=== PATIENT | male | born 1970 | race Caucasian/White ===

== ENCOUNTER 2022-04-07 04:09 | Inpatient (IN) | payer MEDICAID ==
[~2022-04-07] VITALS: Ht 182.9 cm; Wt 187.0 kg
[~2022-04-07 04:09] MED LIST: AMLO-489 PO; ATEN50TA PO; DIA5T PO; GABA-339 PO; GEMF-19 PO; GLYB5TAB8 PO; METF-371 PO; QUET100T38 PO; TRIA50TA2 PO
[2022-04-07 06:31] LABS: Basophils # (auto) 0 10 ^3/uL (0-0.2); Basophils % (auto) 0.3 % (0.0-2.0); Eosinophils # (auto) 0 10 ^3/uL (0-0.8); Eosinophils % (auto) 0.1 % (0.0-7.0); Hematocrit 36.3 % (41.0-53.0); Hemoglobin 12.2 g/dL (13.5-17.5); Lymphocytes # (auto) 0.7 10 ^3/uL (0.4-5.4); Lymphocytes % (auto) 5.1 % (10.0-50.0); Mean Corpuscular Hemoglobin 29.7 pg (28.0-32.0); Mean Corpuscular Hgb Conc. 33.5 g/dL (32.0-36.0); Mean Corpuscular Volume 88.7 fL (80.0-100.0); Monocytes # (auto) 0.9 10 ^3/uL (0-1.3); Monocytes % (auto) 6.6 % (0.0-12.0); Neutrophils # (auto) 12.4 10 ^3/uL (1.6-8.6); Neutrophils % (auto) 87.9 % (37.0-80.0); Red Blood Cells 4.09 10^6/uL (4.5-5.90); Red Cell Distribution Width 15.2 % (11.8-14.3); White Blood Cell 14.1 10^3/uL (4.4-10.8)
[2022-04-07 06:40] LABS: Albumin 3.6 g/dL (3.4-5.0); Calcium 8.4 mg/dL (8.5-10.1); Potassium 5.5 mmol/L (3.5-5.1)
[2022-04-07 06:52] LABS: BUN/Creatinine Ratio 15.5; Bilirubin, Total 0.6 mg/dL (0.2-1.0); Total Protein 7.6 g/dL (6.4-8.2)
[2022-04-07] MEDS ORDERED: FUROSEMIDE 20 MG/2 ML VIAL IV ONE (10:45)
[2022-04-07] MEDS ORDERED: SODIUM ZIRCONIUM CYCL 10 GM PAK PO ONE (10:45)
[2022-04-07] MEDS ORDERED: CALCIUM GLUC 1,000mg/50ml-NS 50 ML IV ONE (10:45)
[2022-04-07] MEDS ORDERED: ALBUTEROL SULF 2.5 MG/0.5ML(0.5%) NEB SOLN NEB ONE (10:45)
[2022-04-07] MEDS ORDERED: SODIUM BICARBONATE 8.4% INJ 50ML SYRINGE IV ONE (10:45)
[2022-04-07] MEDS ORDERED: InsuLIN REG 1unit/0.01ml Soln (100units/ml) IV ONE (10:45)
[2022-04-07] MEDS ORDERED: DEXTROSE (50%) 50ML SYRG IV ONE (10:45)
[2022-04-07] MEDS ORDERED: SODIUM CHLORIDE 0.9% 1,000 ML IV ONE (14:00)
[2022-04-07] MEDS ORDERED: MORPHINE SULFATE INJECTION 2 MG/ML SYRG IV PRN (14:00)
[2022-04-07] MEDS ORDERED: FUROSEMIDE 40 MG/4 ML VIAL IV ONE (14:15)
[2022-04-07] MEDS ORDERED: ALBUTEROL SULF 2.5 MG/0.5ML(0.5%) NEB SOLN NEB PRN (14:15)
[2022-04-07] MEDS ORDERED: methylPREDNISolone SOD SUCC 125 MG/2 ML VL IM ONE (14:15)
[2022-04-07] MEDS ORDERED: DEXTROSE (50%) 50ML SYRG IV PRN (14:15)
[2022-04-07 14:52] LABS: Cholesterol 129 mg/dL (< 200); HDL Cholesterol 57 mg/dL (40-59); LDL Cholesterol 55 mg/dL (< 100); Triglycerides 155 mg/dL (< 150)
[2022-04-07] MEDS: CLINDAMYCIN 300MG IV 50 ML IV SCH ×2 (14:53→21:32)
[2022-04-07] MEDS: InsuLIN REG 1unit/0.01ml Soln (100units/ml) SC SCH ×2 (17:00→22:07)
[2022-04-07 17:10] VITALS: BP 148/68
[2022-04-07] MEDS ORDERED: HEPARIN SODIUM (PORCINE) 5000 UNITS/ML 1ML VIAL ONE (17:25)
[2022-04-07] MEDS: ACCU-CHEK COMFORT CURVE STRIP VI SCH ×2 (17:36→21:32)
[2022-04-07 19:11] VITALS: BP 148/68
[2022-04-07 19:40] VITALS: BP 148/68
[2022-04-07] MEDS: HEPARIN SODIUM (PORCINE) 5000 UNITS/ML 1ML VIAL SC SCH (21:32)
[2022-04-07 22:00] VITALS: BP 154/76
[2022-04-08] LABS: Alcohol, Urine < 3.0 mg/dL (0-10); Amphetamine Screen, Urine NEGATIVE (NEGATIVE); Barbiturate Scree,Urine NEGATIVE (NEGATIVE); Benzodiazephine Screen, Urine NEGATIVE (NEGATIVE); Cannabinoid Screen, Urine NEGATIVE (NEGATIVE); Cocaine Screen, Urine NEGATIVE (NEGATIVE); Opiate Scree,Urine POSITIVE (NEGATIVE); Phencyclidine Screen, Urine NEGATIVE (NEGATIVE)
[2022-04-08 00:07] LABS: Urine Blood Normal /uL (Negative); Urine Specific Gravity 1.008 (1.001-1.035)
[2022-04-08 00:14] LABS: Urine WBC 1 /hpf (0 - 3)
[2022-04-08 00:15] LABS: Urine Bacteria NONE SEEN /hpf (None Seen)
[2022-04-08 05:00] VITALS: BP 143/73
[2022-04-08 06:13] LABS: Basophils # (auto) 0 10 ^3/uL (0-0.2); Eosinophils # (auto) 0 10 ^3/uL (0-0.8); Hemoglobin 12.2 g/dL (13.5-17.5); Lymphocytes # (auto) 0.3 10 ^3/uL (0.4-5.4); Lymphocytes % (auto) 3.4 % (10.0-50.0); Mean Corpuscular Hemoglobin 30.9 pg (28.0-32.0); Mean Corpuscular Hgb Conc. 34.9 g/dL (32.0-36.0); Mean Corpuscular Volume 88.6 fL (80.0-100.0); Monocytes # (auto) 0.2 10 ^3/uL (0-1.3); Monocytes % (auto) 2.9 % (0.0-12.0); Neutrophils # (auto) 7.7 10 ^3/uL (1.6-8.6); Neutrophils % (auto) 93.7 % (37.0-80.0); Red Blood Cells 3.96 10^6/uL (4.5-5.90); Red Cell Distribution Width 14.7 % (11.8-14.3); White Blood Cell 8.2 10^3/uL (4.4-10.8)
[2022-04-08 06:24] LABS: Albumin 3.2 g/dL (3.4-5.0); Calcium 8.5 mg/dL (8.5-10.1); Potassium 4.6 mmol/L (3.5-5.1)
[2022-04-08 06:28] LABS: BUN/Creatinine Ratio 23.8; Bilirubin, Total 0.5 mg/dL (0.2-1.0); Total Protein 7.4 g/dL (6.4-8.2)
[2022-04-08] MEDS: ACCU-CHEK COMFORT CURVE STRIP VI SCH ×4 (06:29→23:48)
[2022-04-08] MEDS: CLINDAMYCIN 300MG IV 50 ML IV SCH ×3 (06:30→23:44)
[2022-04-08] MEDS: InsuLIN REG 1unit/0.01ml Soln (100units/ml) SC SCH ×3 (06:41→18:35)
[2022-04-08 08:00] VITALS: BP 140/82
[2022-04-08] MEDS ORDERED: TRIAMTERENE/HCTZ 75/50MG TABLET PO SCH (10:00)
[2022-04-08] MEDS ORDERED: OPTISON 3ml Vial for INJ IV ONE (10:20)
[2022-04-08] MEDS: amLODIPine BESYLATE 5 MG TAB PO SCH (10:51)
[2022-04-08] MEDS: ATENOLOL 50 MG TAB PO SCH (10:51)
[2022-04-08] MEDS: HEPARIN SODIUM (PORCINE) 5000 UNITS/ML 1ML VIAL SC SCH (10:57)
[2022-04-08] MEDS: HYDROcodone-ACET 10/325MG TAB PO PRN ×2 (12:28→23:55)
[2022-04-08] MEDS: FUROSEMIDE 20 MG/2 ML VIAL IV SCH (12:29)
[2022-04-08 12:49] VITALS: BP 148/76
[2022-04-08] MEDS ORDERED: GABAPENTIN 400 MG CAP PO SCH (14:00)
[2022-04-08] MEDS: metFORMIN HYDROCHLORIDE 850 MG TAB PO SCH ×2 (15:31→23:46)
[2022-04-08 16:00] VITALS: BP 106/73
[2022-04-08] MEDS ORDERED: TRIAMTERENE/HCTZ 37.5/25 MG CAP/TAB PO ONE (16:30)
[2022-04-08] MEDS: GABAPENTIN 400 MG CAP PO SCH ×2 (18:32→23:45)
[2022-04-08 22:00] VITALS: BP 132/67
[2022-04-08] MEDS ORDERED: QUEtiapine FUMARATE 100 MG TAB PO SCH (22:00)
[2022-04-08] MEDS: methylPREDNISolone SOD SUCC 40 MG/ML VL IV SCH (23:45)
[2022-04-09] MEDS: HEPARIN SODIUM (PORCINE) 5000 UNITS/ML 1ML VIAL SC SCH ×2 (00:08→10:52)
[2022-04-09] MEDS: InsuLIN REG 1unit/0.01ml Soln (100units/ml) SC SCH ×4 (00:10→17:35)
[2022-04-09 05:00] VITALS: BP 141/74
[2022-04-09] MEDS: GABAPENTIN 400 MG CAP PO SCH ×2 (05:20→14:23)
[2022-04-09] MEDS: metFORMIN HYDROCHLORIDE 850 MG TAB PO SCH ×2 (05:20→14:23)
[2022-04-09] MEDS: CLINDAMYCIN 300MG IV 50 ML IV SCH ×3 (05:21→14:23)
[2022-04-09 06:43] LABS: Basophils # (auto) 0 10 ^3/uL (0-0.2); Basophils % (auto) 0.1 % (0.0-2.0); Eosinophils # (auto) 0 10 ^3/uL (0-0.8); Hematocrit 34.5 % (41.0-53.0); Hemoglobin 11.4 g/dL (13.5-17.5); Lymphocytes # (auto) 0.5 10 ^3/uL (0.4-5.4); Lymphocytes % (auto) 6.1 % (10.0-50.0); Mean Corpuscular Hemoglobin 29.7 pg (28.0-32.0); Mean Corpuscular Hgb Conc. 33.1 g/dL (32.0-36.0); Mean Corpuscular Volume 89.7 fL (80.0-100.0); Monocytes # (auto) 0.2 10 ^3/uL (0-1.3); Monocytes % (auto) 3.1 % (0.0-12.0); Neutrophils # (auto) 6.8 10 ^3/uL (1.6-8.6); Neutrophils % (auto) 90.7 % (37.0-80.0); Nucleated Red Blood Cells % 0.1 %; Red Blood Cells 3.84 10^6/uL (4.5-5.90); Red Cell Distribution Width 14.8 % (11.8-14.3); White Blood Cell 7.5 10^3/uL (4.4-10.8)
[2022-04-09] MEDS: ACCU-CHEK COMFORT CURVE STRIP VI SCH ×3 (06:43→17:33)
[2022-04-09 07:00] LABS: BUN/Creatinine Ratio 21.6; Calcium 8.1 mg/dL (8.5-10.1); Potassium 5.5 mmol/L (3.5-5.1)
[2022-04-09 08:32] VITALS: BP 146/89
[2022-04-09] MEDS ORDERED: TRIAMTERENE/HCTZ 37.5/25 MG CAP/TAB PO SCH (10:00)
[2022-04-09] MEDS ORDERED: FURO1TAB33 PO (10:32)
[2022-04-09] MEDS ORDERED: PRED20TA2 PO (10:32)
[2022-04-09] MEDS ORDERED: CLIN300C8 PO (10:33)
[2022-04-09] MEDS: ATENOLOL 50 MG TAB PO SCH (10:49)
[2022-04-09] MEDS: amLODIPine BESYLATE 5 MG TAB PO SCH (10:50)
[2022-04-09] MEDS: HYDROcodone-ACET 10/325MG TAB PO PRN ×2 (10:51→17:33)
[2022-04-09] MEDS: FUROSEMIDE 20 MG/2 ML VIAL IV SCH (10:51)
[2022-04-09] MEDS: methylPREDNISolone SOD SUCC 40 MG/ML VL IV SCH (10:52)
[2022-04-09 13:14] VITALS: BP 111/78
[2022-04-09 16:54] VITALS: BP 146/89
== END 2022-04-09 18:58 | disposition home or self-care (01) | DRG 140 ==
LOC: EDBD 04:09 → EDUNIT# 04:09 → ER 04:15 → TELE 14:06 → TELE-WESTW 15:21
PROVIDERS: ADMIT Registered Nurse; ATTEND Internal Medicine Pulmonary Disease
DX: J44.1 Chronic obstructive pulmonary disease with (acute) exacerbation (principal); J96.21 Acute and chronic respiratory failure with hypoxia; I50.33 Acute on chronic diastolic (congestive) heart failure; N17.9 Acute kidney failure, unspecified; L03.116 Cellulitis of left lower limb; Z68.43 Body mass index [BMI] 50.0-59.9, adult; I13.0 Hypertensive heart and chronic kidney disease with heart failure and stage 1 through stage 4 chronic kidney disease, or unspecified chronic kidney disease; D64.9 Anemia, unspecified; E11.22 Type 2 diabetes mellitus with diabetic chronic kidney disease; E87.5 Hyperkalemia; E66.01 Morbid (severe) obesity due to excess calories; F10.10 Alcohol abuse, uncomplicated; F32.A Depression, unspecified; G47.30 Sleep apnea, unspecified; N18.30 Chronic kidney disease, stage 3 unspecified; Z99.81 Dependence on supplemental oxygen; R79.89 Other specified abnormal findings of blood chemistry; Z20.822 Contact with and (suspected) exposure to COVID-19
CPT/HCPCS: 36415; 71045; 80048; 80053; 80061; 80307; 80320; 81001; 82962; 83036; 83735; 83880; 84132; 84484; 85025; 87040; 93005; 93306; 93970; 94640; 94644; 96365; 96372; 96375; 99291; G0378; J1815; J3490; Q9956

== ENCOUNTER 2022-04-25 08:25 | Emergency (ER) | payer MEDICAID ==
[~2022-04-25] VITALS: Ht 182.9 cm; Wt 46.7 kg
[2022-04-25 08:25] VITALS: BP 144/72
[~2022-04-25 08:25] MED LIST changes: +CLIN300C8 PO; -DIA5T PO; +FURO1TAB33 PO; -GEMF-19 PO; +PRED20TA2 PO; -TRIA50TA2 PO
[2022-04-25 10:50] LABS: Basophils # (auto) 0.1 10 ^3/uL (0-0.2); Basophils % (auto) 1.6 % (0.0-2.0); Eosinophils # (auto) 0.2 10 ^3/uL (0-0.8); Eosinophils % (auto) 4.2 % (0.0-7.0); Hematocrit 38.1 % (41.0-53.0); Hemoglobin 12.6 g/dL (13.5-17.5); Lymphocytes # (auto) 0.9 10 ^3/uL (0.4-5.4); Lymphocytes % (auto) 14.8 % (10.0-50.0); Mean Corpuscular Hemoglobin 29.7 pg (28.0-32.0); Mean Corpuscular Hgb Conc. 33.1 g/dL (32.0-36.0); Mean Corpuscular Volume 89.5 fL (80.0-100.0); Monocytes # (auto) 0.6 10 ^3/uL (0-1.3); Monocytes % (auto) 9.5 % (0.0-12.0); Neutrophils # (auto) 4.1 10 ^3/uL (1.6-8.6); Neutrophils % (auto) 69.9 % (37.0-80.0); Nucleated Red Blood Cells % 0.1 %; Red Blood Cells 4.25 10^6/uL (4.5-5.90); White Blood Cell 5.9 10^3/uL (4.4-10.8)
[2022-04-25 11:18] LABS: Albumin 3.2 g/dL (3.4-5.0); Calcium 8.3 mg/dL (8.5-10.1); Magnesium 2.2 mg/dL (1.6-2.6); Potassium 4.2 mmol/L (3.5-5.1)
[2022-04-25 11:22] LABS: BUN/Creatinine Ratio 16.8; Bilirubin, Total 0.7 mg/dL (0.2-1.0); Total Protein 7.3 g/dL (6.4-8.2)
[2022-04-25] MEDS ORDERED: VANCOMYCIN 1GM/250ML 250 ML IV ONE (15:45)
== END 2022-04-25 21:34 | disposition left against medical advice (07) ==
LOC: ER 08:25
DX: L03.116 Cellulitis of left lower limb (principal); I10 Essential (primary) hypertension; E11.9 Type 2 diabetes mellitus without complications; J44.9 Chronic obstructive pulmonary disease, unspecified; R06.02 Shortness of breath; Z88.1 Allergy status to other antibiotic agents
CPT/HCPCS: 36415; 71045; 80053; 83735; 83880; 84484; 85025; 93005

== ENCOUNTER 2022-10-23 20:57 | Inpatient (IN) | payer MEDICAID ==
[~2022-10-23] VITALS: Ht 182.9 cm; Wt 175.5 kg
[2022-10-23] MEDS ORDERED: FUROSEMIDE 100 MG/10ML VIAL IV ONE (21:15)
[2022-10-23] MEDS ORDERED: methylPREDNISolone SOD SUCC 125 MG/2 ML VL IV ONE (21:15)
[2022-10-23 22:24] LABS: Basophils # (auto) 0 10 ^3/uL (0-0.2); Basophils % (auto) 0.4 % (0.0-2.0); Eosinophils # (auto) 0.2 10 ^3/uL (0-0.8); Eosinophils % (auto) 2.9 % (0.0-7.0); Hematocrit 34.6 % (41.0-53.0); Hemoglobin 11.1 g/dL (13.5-17.5); Lymphocytes # (auto) 0.5 10 ^3/uL (0.4-5.4); Lymphocytes % (auto) 8.7 % (10.0-50.0); Mean Corpuscular Hemoglobin 29.3 pg (28.0-32.0); Mean Corpuscular Hgb Conc. 32.2 g/dL (32.0-36.0); Monocytes # (auto) 0.6 10 ^3/uL (0-1.3); Monocytes % (auto) 9.6 % (0.0-12.0); Neutrophils # (auto) 4.6 10 ^3/uL (1.6-8.6); Neutrophils % (auto) 78.4 % (37.0-80.0); Nucleated Red Blood Cells % 0.3 %; White Blood Cell 5.9 10^3/uL (4.4-10.8)
[2022-10-23 22:33] LABS: Albumin 3.3 g/dL (3.4-5.0); BUN/Creatinine Ratio 11.2; Calcium 7.9 mg/dL (8.5-10.1); Potassium 4.2 mmol/L (3.5-5.1)
[2022-10-23 22:37] LABS: Bilirubin, Total 0.6 mg/dL (0.2-1.0); Total Protein 6.4 g/dL (6.4-8.2)
[2022-10-23 22:40] LABS: INR 0.94 (0.9-1.15); Partial Thromboplastin Time 28.1 sec (24.6-33.4)
[2022-10-24 00:27] LABS: Urine Bacteria FEW /hpf (None Seen); Urine Blood Negative /uL (Negative); Urine Specific Gravity 1.004 (1.001-1.035); Urine WBC <1 /hpf (0 - 3)
[2022-10-24] MEDS ORDERED: levoFLOXacin 500MG 100 ML IV ONE (01:00)
[2022-10-24] MEDS ORDERED: DEXTROSE (50%) 50ML SYRG IV PRN (02:45)
[2022-10-24] MEDS ORDERED: ONDANSETRON HCL 4 MG/2 ML VIAL IV PRN (02:45)
[2022-10-24] MEDS: FUROSEMIDE 40 MG TAB PO SCH ×2 (06:58→17:16)
[2022-10-24] MEDS: ACCU-CHEK COMFORT CURVE STRIP VI SCH ×4 (06:59→23:51)
[2022-10-24] MEDS: InsuLIN REG 1unit/0.01ml Soln (100units/ml) SC SCH ×3 (06:59→17:26)
[2022-10-24] MEDS: ACETAMINOPHEN 325 MG TAB PO PRN ×2 (07:51→19:48)
[2022-10-24] MEDS: ENOXAPARIN SOD 40 MG/0.4 ML SYRINGE SC SCH (09:58)
[2022-10-24] MEDS: PANTOPRAZOLE 40 MG TAB PO SCH (09:58)
[2022-10-24] MEDS: ATENOLOL 50 MG TAB PO SCH (09:59)
[2022-10-24] MEDS: LOSARTAN POTASSIUM 50 MG TAB PO SCH (09:59)
[2022-10-24] MEDS ORDERED: methylPREDNISolone SOD SUCC 125 MG/2 ML VL IV ONE (10:00)
[2022-10-24] MEDS ORDERED: amLODIPine BESYLATE 5 MG TAB PO ONE (12:45)
[2022-10-24 13:45] VITALS: BP 161/80
[2022-10-24] MEDS: ALBUTEROL SULF 2.5 MG/0.5ML(0.5%) NEB SOLN NEB SCH ×2 (13:47→18:31)
[2022-10-24] MEDS: HYDROcodone-ACET 10/325MG TAB PO PRN (14:22)
[2022-10-24] MEDS: methylPREDNISolone SOD SUCC 125 MG/2 ML VL IV SCH ×2 (16:23→21:44)
[2022-10-24] MEDS ORDERED: ATOR40TA52 PO (16:26)
[2022-10-24] MEDS ORDERED: BECL80AE11 INH (16:26)
[2022-10-24] MEDS ORDERED: LOSA-69 PO (16:26)
[2022-10-24] MEDS ORDERED: INSU1INJ19 SC (16:26)
[2022-10-24] MEDS: hydrALAZINE HCL 20 MG/ML VL IV PRN (18:15)
[2022-10-24] MEDS: cefTRIAXone 1GM/50ML D5W 50 ML IV SCH (20:49)
[2022-10-24] MEDS: AZITHROMYCIN 500MG/ 250ML 250 ML IV SCH (21:45)
[2022-10-24] MEDS: ATORVASTATIN 20 MG TAB PO SCH (21:45)
[2022-10-24 22:00] VITALS: BP 125/86
[2022-10-25] MEDS: TEMAZEPAM 15 MG CAP PO PRN ×2 (00:01→21:36)
[2022-10-25] MEDS: methylPREDNISolone SOD SUCC 125 MG/2 ML VL IV SCH ×4 (03:52→21:35)
[2022-10-25 05:00] VITALS: BP 178/93
[2022-10-25] MEDS: ACCU-CHEK COMFORT CURVE STRIP VI SCH ×4 (05:36→23:48)
[2022-10-25] MEDS: FUROSEMIDE 40 MG TAB PO SCH ×2 (05:36→17:16)
[2022-10-25 05:42] LABS: Basophils # (auto) 0 10 ^3/uL (0-0.2); Basophils % (auto) 0.1 % (0.0-2.0); Eosinophils # (auto) 0 10 ^3/uL (0-0.8); Hematocrit 36.8 % (41.0-53.0); Hemoglobin 11.8 g/dL (13.5-17.5); Lymphocytes # (auto) 0.4 10 ^3/uL (0.4-5.4); Lymphocytes % (auto) 5.9 % (10.0-50.0); Mean Corpuscular Hemoglobin 29.3 pg (28.0-32.0); Mean Corpuscular Hgb Conc. 32.2 g/dL (32.0-36.0); Mean Corpuscular Volume 91.1 fL (80.0-100.0); Monocytes # (auto) 0.5 10 ^3/uL (0-1.3); Monocytes % (auto) 8.1 % (0.0-12.0); Neutrophils # (auto) 5.2 10 ^3/uL (1.6-8.6); Neutrophils % (auto) 85.9 % (37.0-80.0); Red Blood Cells 4.04 10^6/uL (4.5-5.90); Red Cell Distribution Width 14.6 % (11.8-14.3); White Blood Cell 6.1 10^3/uL (4.4-10.8)
[2022-10-25] MEDS: InsuLIN REG 1unit/0.01ml Soln (100units/ml) SC SCH ×5 (05:51→23:49)
[2022-10-25 06:06] LABS: Albumin 3.2 g/dL (3.4-5.0); Potassium 4.2 mmol/L (3.5-5.1)
[2022-10-25] MEDS: ALBUTEROL SULF 2.5 MG/0.5ML(0.5%) NEB SOLN NEB SCH ×3 (06:06→18:55)
[2022-10-25 06:11] LABS: Bilirubin, Total 0.4 mg/dL (0.2-1.0); Total Protein 6.5 g/dL (6.4-8.2)
[2022-10-25 06:20] LABS: BUN/Creatinine Ratio 23.6
[2022-10-25 09:09] VITALS: BP 164/92
[2022-10-25] MEDS: LOSARTAN POTASSIUM 50 MG TAB PO SCH (09:40)
[2022-10-25] MEDS: PANTOPRAZOLE 40 MG TAB PO SCH (09:40)
[2022-10-25] MEDS: ATENOLOL 50 MG TAB PO SCH (09:40)
[2022-10-25] MEDS: amLODIPine BESYLATE 5 MG TAB PO SCH (09:40)
[2022-10-25] MEDS: ENOXAPARIN SOD 40 MG/0.4 ML SYRINGE SC SCH (09:41)
[2022-10-25] MEDS: HYDROcodone-ACET 10/325MG TAB PO PRN ×2 (12:40→20:09)
[2022-10-25 13:00] VITALS: BP 138/90
[2022-10-25 17:18] VITALS: BP 137/89
[2022-10-25] MEDS: cefTRIAXone 1GM/50ML D5W 50 ML IV SCH (20:59)
[2022-10-25] MEDS: AZITHROMYCIN 500MG/ 250ML 250 ML IV SCH (21:35)
[2022-10-25] MEDS: ATORVASTATIN 20 MG TAB PO SCH (21:36)
[2022-10-25 22:00] VITALS: BP 146/80
[2022-10-26] MEDS: ALBUTEROL SULF 2.5 MG/0.5ML(0.5%) NEB SOLN NEB PRN ×2 (02:09→16:30)
[2022-10-26] MEDS: methylPREDNISolone SOD SUCC 125 MG/2 ML VL IV SCH ×4 (03:54→21:27)
[2022-10-26 05:00] VITALS: BP 163/91
[2022-10-26 05:30] LABS: Basophils # (auto) 0 10 ^3/uL (0-0.2); Eosinophils # (auto) 0 10 ^3/uL (0-0.8); Hematocrit 37.8 % (41.0-53.0); Hemoglobin 12.2 g/dL (13.5-17.5); Lymphocytes # (auto) 0.4 10 ^3/uL (0.4-5.4); Lymphocytes % (auto) 5.8 % (10.0-50.0); Mean Corpuscular Hgb Conc. 32.4 g/dL (32.0-36.0); Mean Corpuscular Volume 89.7 fL (80.0-100.0); Monocytes # (auto) 0.4 10 ^3/uL (0-1.3); Neutrophils # (auto) 6.6 10 ^3/uL (1.6-8.6); Neutrophils % (auto) 88.2 % (37.0-80.0); Nucleated Red Blood Cells % 0.1 %; Red Blood Cells 4.22 10^6/uL (4.5-5.90); Red Cell Distribution Width 14.9 % (11.8-14.3); White Blood Cell 7.5 10^3/uL (4.4-10.8)
[2022-10-26] MEDS: FUROSEMIDE 40 MG TAB PO SCH ×2 (05:51→18:12)
[2022-10-26] MEDS: ACCU-CHEK COMFORT CURVE STRIP VI SCH ×4 (05:51→21:29)
[2022-10-26 05:55] LABS: Albumin 3.2 g/dL (3.4-5.0); BUN/Creatinine Ratio 27.7; Bilirubin, Total 0.5 mg/dL (0.2-1.0); Total Protein 6.7 g/dL (6.4-8.2)
[2022-10-26] MEDS: InsuLIN REG 1unit/0.01ml Soln (100units/ml) SC SCH ×4 (06:02→22:59)
[2022-10-26] MEDS: ALBUTEROL SULF 2.5 MG/0.5ML(0.5%) NEB SOLN NEB SCH ×4 (06:27→22:50)
[2022-10-26 09:00] VITALS: BP_SYST 147; BP_SYST 148; BP_DIAS 65; BP_DIAS 76
[2022-10-26] MEDS: PANTOPRAZOLE 40 MG TAB PO SCH (09:32)
[2022-10-26] MEDS: ENOXAPARIN SOD 40 MG/0.4 ML SYRINGE SC SCH (09:32)
[2022-10-26] MEDS: LOSARTAN POTASSIUM 50 MG TAB PO SCH (09:34)
[2022-10-26] MEDS: amLODIPine BESYLATE 5 MG TAB PO SCH (09:35)
[2022-10-26] MEDS: HYDROcodone-ACET 10/325MG TAB PO PRN (09:36)
[2022-10-26] MEDS: ATENOLOL 50 MG TAB PO SCH (09:36)
[2022-10-26 13:00] VITALS: BP 162/96
[2022-10-26 17:27] VITALS: BP 165/94
[2022-10-26 20:00] VITALS: BP 165/94
[2022-10-26 21:21] VITALS: BP 155/86
[2022-10-26] MEDS: cefTRIAXone 1GM/50ML D5W 50 ML IV SCH (21:27)
[2022-10-26] MEDS: AZITHROMYCIN 500MG/ 250ML 250 ML IV SCH (21:28)
[2022-10-26] MEDS: ATORVASTATIN 20 MG TAB PO SCH (21:29)
[2022-10-27] MEDS: ALBUTEROL SULF 2.5 MG/0.5ML(0.5%) NEB SOLN NEB SCH ×6 (02:27→22:04)
[2022-10-27 05:00] VITALS: BP 168/85
[2022-10-27 06:06] LABS: Basophils # (auto) 0 10 ^3/uL (0-0.2); Basophils % (auto) 0.1 % (0.0-2.0); Eosinophils # (auto) 0 10 ^3/uL (0-0.8); Hematocrit 39.6 % (41.0-53.0); Hemoglobin 12.8 g/dL (13.5-17.5); Lymphocytes # (auto) 0.6 10 ^3/uL (0.4-5.4); Lymphocytes % (auto) 7.3 % (10.0-50.0); Mean Corpuscular Hgb Conc. 32.4 g/dL (32.0-36.0); Mean Corpuscular Volume 89.5 fL (80.0-100.0); Monocytes # (auto) 0.8 10 ^3/uL (0-1.3); Monocytes % (auto) 9.2 % (0.0-12.0); Neutrophils # (auto) 6.8 10 ^3/uL (1.6-8.6); Neutrophils % (auto) 83.4 % (37.0-80.0); Nucleated Red Blood Cells % 0.1 %; Red Blood Cells 4.42 10^6/uL (4.5-5.90); Red Cell Distribution Width 14.3 % (11.8-14.3); White Blood Cell 8.2 10^3/uL (4.4-10.8)
[2022-10-27 06:17] LABS: Albumin 3.4 g/dL (3.4-5.0); Calcium 8.2 mg/dL (8.5-10.1); Potassium 4.1 mmol/L (3.5-5.1)
[2022-10-27] MEDS: methylPREDNISolone SOD SUCC 125 MG/2 ML VL IV SCH ×4 (06:18→21:31)
[2022-10-27 06:19] LABS: BUN/Creatinine Ratio 23.9
[2022-10-27] MEDS: InsuLIN REG 1unit/0.01ml Soln (100units/ml) SC SCH ×4 (06:20→23:32)
[2022-10-27] MEDS: FUROSEMIDE 40 MG TAB PO SCH ×2 (06:20→18:18)
[2022-10-27] MEDS: ACCU-CHEK COMFORT CURVE STRIP VI SCH ×3 (06:20→18:18)
[2022-10-27 06:21] LABS: Bilirubin, Total 0.5 mg/dL (0.2-1.0); Total Protein 6.6 g/dL (6.4-8.2)
[2022-10-27 08:00] VITALS: BP 168/92
[2022-10-27 09:00] VITALS: BP 168/92
[2022-10-27] MEDS: amLODIPine BESYLATE 5 MG TAB PO SCH (09:03)
[2022-10-27] MEDS: PANTOPRAZOLE 40 MG TAB PO SCH (09:03)
[2022-10-27] MEDS: ATENOLOL 50 MG TAB PO SCH (09:03)
[2022-10-27] MEDS: ENOXAPARIN SOD 40 MG/0.4 ML SYRINGE SC SCH (09:04)
[2022-10-27] MEDS: LOSARTAN POTASSIUM 50 MG TAB PO SCH (09:04)
[2022-10-27] MEDS: HYDROcodone-ACET 10/325MG TAB PO PRN ×2 (09:05→15:20)
[2022-10-27 13:00] VITALS: BP 169/74
[2022-10-27] MEDS: PIPERACILLIN-TAZOB 3.375GM 100 ML IV SCH ×2 (13:01→19:45)
[2022-10-27] MEDS ORDERED: ALBUTEROL SULF 2.5 MG/0.5ML(0.5%) NEB SOLN ONE (15:30)
[2022-10-27 17:00] VITALS: BP 162/87
[2022-10-27] MEDS ORDERED: LOSARTAN POTASSIUM 50 MG TAB PO ONE (19:00)
[2022-10-27] MEDS: TEMAZEPAM 15 MG CAP PO PRN (21:31)
[2022-10-27] MEDS: AZITHROMYCIN 500MG/ 250ML 250 ML IV SCH (21:31)
[2022-10-27] MEDS: ATORVASTATIN 20 MG TAB PO SCH (21:31)
[2022-10-27 22:00] VITALS: BP 163/99
[2022-10-28] MEDS: ACCU-CHEK COMFORT CURVE STRIP VI SCH ×5 (00:20→23:52)
[2022-10-28] MEDS: PIPERACILLIN-TAZOB 3.375GM 100 ML IV SCH ×5 (00:24→23:59)
[2022-10-28 03:25] VITALS: BP 163/99
[2022-10-28] MEDS: methylPREDNISolone SOD SUCC 125 MG/2 ML VL IV SCH ×4 (04:35→21:58)
[2022-10-28 05:00] VITALS: BP 160/100
[2022-10-28] MEDS: ALBUTEROL SULF 2.5 MG/0.5ML(0.5%) NEB SOLN NEB SCH ×5 (06:02→22:49)
[2022-10-28 06:04] LABS: Hematocrit 39.2 % (41.0-53.0); Mean Corpuscular Hgb Conc. 33.3 g/dL (32.0-36.0); Red Blood Cells 4.35 10^6/uL (4.5-5.90); Red Cell Distribution Width 14.1 % (11.8-14.3); White Blood Cell 6.7 10^3/uL (4.4-10.8)
[2022-10-28 06:08] LABS: Basophils % (manual) 0 (0.0-2.0); Blast Cells 0; Eosinophils % (manual) 0 (0-7); Promyelocytes % 0
[2022-10-28] MEDS: FUROSEMIDE 40 MG TAB PO SCH ×2 (06:15→18:49)
[2022-10-28] MEDS: InsuLIN REG 1unit/0.01ml Soln (100units/ml) SC SCH ×3 (06:20→18:49)
[2022-10-28 08:15] VITALS: BP 173/88
[2022-10-28] MEDS: LOSARTAN POTASSIUM 50 MG TAB PO SCH (09:25)
[2022-10-28] MEDS: HYDROcodone-ACET 10/325MG TAB PO PRN ×2 (09:25→21:58)
[2022-10-28] MEDS: amLODIPine BESYLATE 5 MG TAB PO SCH (09:25)
[2022-10-28] MEDS: ATENOLOL 50 MG TAB PO SCH (09:26)
[2022-10-28] MEDS: PANTOPRAZOLE 40 MG TAB PO SCH (09:26)
[2022-10-28] MEDS: ENOXAPARIN SOD 40 MG/0.4 ML SYRINGE SC SCH (09:26)
[2022-10-28 09:34] LABS: Chloride 98 mmol/L (98-107); Sodium 139 mmol/L (136-145)
[2022-10-28 09:40] LABS: Albumin 3.1 g/dL (3.4-5.0); Anion Gap 8 (5-15); BUN/Creatinine Ratio 22.7; Blood Urea Nitrogen 20 mg/dL (7-18); Calcium 8.2 mg/dL (8.5-10.1); Carbon Dioxide 33 mmol/L (21-32); GFR African American 117 mL/min; GFR Non-African American 96 mL/min; Glucose 266 mg/dL (74-106)
[2022-10-28 09:47] LABS: Band Neutrophils % (manual) 7; Lymphocytes % (manual) 5 (10.0-50.0); Metamyelocytes % 5; Monocytes % (manual) 9 (0-12); Myelocytes % 1; Reactive Lymphocytes 3
[2022-10-28 10:15] LABS: Alanine Aminotransferase 66 U/L (16-61); Alkaline Phosphatase 79 U/L (45-117); Aspartate Aminotransferase 45 U/L (15-37); Bilirubin, Total 0.6 mg/dL (0.2-1.0); Total Protein 6.9 g/dL (6.4-8.2)
[2022-10-28 12:30] VITALS: BP 154/80
[2022-10-28] MEDS: INSULIN LANTUS (GLARGINE) 1 /0.01ml (100units/ml) SC SCH (14:35)
[2022-10-28 16:20] VITALS: BP 159/90
[2022-10-28 21:54] VITALS: BP 146/77
[2022-10-28] MEDS: TEMAZEPAM 15 MG CAP PO PRN (21:57)
[2022-10-28] MEDS: ATORVASTATIN 20 MG TAB PO SCH (21:57)
[2022-10-28] MEDS: AZITHROMYCIN 500MG/ 250ML 250 ML IV SCH (22:16)
[2022-10-29] MEDS: InsuLIN REG 1unit/0.01ml Soln (100units/ml) SC SCH ×5 (00:04→23:58)
[2022-10-29 04:43] VITALS: BP 170/91
[2022-10-29 05:22] LABS: Hemoglobin 13.3 g/dL (13.5-17.5)
[2022-10-29] MEDS: ACCU-CHEK COMFORT CURVE STRIP VI SCH ×4 (05:23→23:55)
[2022-10-29] MEDS: methylPREDNISolone SOD SUCC 125 MG/2 ML VL IV SCH ×3 (05:23→21:54)
[2022-10-29 05:26] LABS: Hematocrit 37.4 % (41.0-53.0); Mean Corpuscular Hgb Conc. 35.4 g/dL (32.0-36.0); Mean Corpuscular Volume 98.9 fL (80.0-100.0); Red Blood Cells 3.78 10^6/uL (4.5-5.90); White Blood Cell 5.3 10^3/uL (4.4-10.8)
[2022-10-29] MEDS: FUROSEMIDE 40 MG TAB PO SCH (05:36)
[2022-10-29] MEDS: HYDROcodone-ACET 10/325MG TAB PO PRN ×2 (06:19→21:54)
[2022-10-29] MEDS: ALBUTEROL SULF 2.5 MG/0.5ML(0.5%) NEB SOLN NEB SCH ×5 (06:26→21:47)
[2022-10-29 06:31] LABS: Basophils % (manual) 0 (0.0-2.0); Blast Cells 0; Eosinophils % (manual) 0 (0-7); Promyelocytes % 0
[2022-10-29 06:52] LABS: BUN/Creatinine Ratio 29.1; Bilirubin, Total 0.9 mg/dL (0.2-1.0); Calcium 8.1 mg/dL (8.5-10.1); Potassium 4.7 mmol/L (3.5-5.1); Total Protein 6.4 g/dL (6.4-8.2)
[2022-10-29] MEDS: PIPERACILLIN-TAZOB 3.375GM 100 ML IV SCH ×3 (07:05→17:34)
[2022-10-29 09:00] VITALS: BP 161/96
[2022-10-29] MEDS: amLODIPine BESYLATE 5 MG TAB PO SCH (11:12)
[2022-10-29] MEDS: ATENOLOL 50 MG TAB PO SCH (11:13)
[2022-10-29] MEDS: PANTOPRAZOLE 40 MG TAB PO SCH (11:17)
[2022-10-29] MEDS: LOSARTAN POTASSIUM 50 MG TAB PO SCH (11:29)
[2022-10-29] MEDS: ENOXAPARIN SOD 40 MG/0.4 ML SYRINGE SC SCH (11:36)
[2022-10-29] MEDS: INSULIN LANTUS (GLARGINE) 1 /0.01ml (100units/ml) SC SCH (12:27)
[2022-10-29 12:41] LABS: Band Neutrophils % (manual) 5; Lymphocytes % (manual) 8 (10.0-50.0); Metamyelocytes % 1; Monocytes % (manual) 6 (0-12); Myelocytes % 1; Reactive Lymphocytes 1
[2022-10-29] MEDS ORDERED: InsuLIN REG 1unit/0.01ml Soln (100units/ml) SC ONE (12:45)
[2022-10-29 13:00] VITALS: BP 161/90
[2022-10-29] MEDS: HCTZ 25 MG TAB PO SCH (13:14)
[2022-10-29] MEDS: hydrALAZINE HCL 20 MG/ML VL IV PRN ×2 (13:15→22:42)
[2022-10-29 16:39] VITALS: BP 156/88
[2022-10-29] MEDS ORDERED: InsuLIN REG 1unit/0.01ml Soln (100units/ml) IV ONE (18:15)
[2022-10-29 21:38] VITALS: BP 173/91
[2022-10-29] MEDS: TEMAZEPAM 15 MG CAP PO PRN (21:52)
[2022-10-29] MEDS: ATORVASTATIN 20 MG TAB PO SCH (21:52)
[2022-10-29] MEDS: AZITHROMYCIN 500MG/ 250ML 250 ML IV SCH (21:54)
[2022-10-29 23:22] VITALS: BP 144/68
[2022-10-30] MEDS: PIPERACILLIN-TAZOB 3.375GM 100 ML IV SCH ×4 (01:11→17:15)
[2022-10-30 04:32] VITALS: BP 166/94
[2022-10-30] MEDS ORDERED: SODIUM CHLORIDE 0.9 % NEB SOLN 3ML NEB ONE (05:34)
[2022-10-30] MEDS: ACCU-CHEK COMFORT CURVE STRIP VI SCH ×3 (06:00→18:22)
[2022-10-30] MEDS: InsuLIN REG 1unit/0.01ml Soln (100units/ml) SC SCH ×3 (06:07→17:14)
[2022-10-30] MEDS: ALBUTEROL SULF 2.5 MG/0.5ML(0.5%) NEB SOLN NEB SCH ×4 (06:58→22:04)
[2022-10-30] MEDS: methylPREDNISolone SOD SUCC 125 MG/2 ML VL IV SCH ×2 (09:44→22:05)
[2022-10-30] MEDS: ENOXAPARIN SOD 40 MG/0.4 ML SYRINGE SC SCH (09:44)
[2022-10-30] MEDS: FUROSEMIDE 20 MG TAB PO SCH (09:46)
[2022-10-30] MEDS: LOSARTAN POTASSIUM 50 MG TAB PO SCH (09:47)
[2022-10-30] MEDS: amLODIPine BESYLATE 5 MG TAB PO SCH (09:48)
[2022-10-30] MEDS: PANTOPRAZOLE 40 MG TAB PO SCH (09:49)
[2022-10-30] MEDS: ATENOLOL 50 MG TAB PO SCH (09:49)
[2022-10-30] MEDS: HCTZ 25 MG TAB PO SCH (09:49)
[2022-10-30] MEDS ORDERED: INSULIN LANTUS (GLARGINE) 1 /0.01ml (100units/ml) SC SCH (10:00)
[2022-10-30] MEDS: INSULIN LANTUS (GLARGINE) 1 /0.01ml (100units/ml) SC SCH ×2 (12:00→22:54)
[2022-10-30 13:00] VITALS: BP 126/90
[2022-10-30] MEDS ORDERED: InsuLIN REG 1unit/0.01ml Soln (100units/ml) IV ONE ×2 (14:00→18:15)
[2022-10-30 17:00] VITALS: BP 134/81
[2022-10-30] MEDS: HYDROcodone-ACET 10/325MG TAB PO PRN (19:59)
[2022-10-30 22:00] VITALS: BP 139/88
[2022-10-30] MEDS: TEMAZEPAM 15 MG CAP PO PRN (22:05)
[2022-10-30] MEDS: AZITHROMYCIN 500MG/ 250ML 250 ML IV SCH (22:06)
[2022-10-30] MEDS: ATORVASTATIN 20 MG TAB PO SCH (22:06)
[2022-10-31] MEDS: ACCU-CHEK COMFORT CURVE STRIP VI SCH ×4 (00:26→18:28)
[2022-10-31] MEDS: InsuLIN REG 1unit/0.01ml Soln (100units/ml) SC SCH ×6 (00:27→22:38)
[2022-10-31 00:43] VITALS: BP 134/81
[2022-10-31] MEDS: PIPERACILLIN-TAZOB 3.375GM 100 ML IV SCH ×3 (04:10→13:06)
[2022-10-31 05:00] VITALS: BP 133/84
[2022-10-31] MEDS: ALBUTEROL SULF 2.5 MG/0.5ML(0.5%) NEB SOLN NEB SCH ×5 (06:12→22:13)
[2022-10-31 09:00] VITALS: BP 155/84
[2022-10-31] MEDS ORDERED: methylPREDNISolone SOD SUCC 40 MG/ML VL IV SCH (10:00)
[2022-10-31] MEDS: FUROSEMIDE 20 MG TAB PO SCH (11:15)
[2022-10-31] MEDS: amLODIPine BESYLATE 5 MG TAB PO SCH (11:15)
[2022-10-31] MEDS: LOSARTAN POTASSIUM 50 MG TAB PO SCH (11:15)
[2022-10-31] MEDS: HCTZ 25 MG TAB PO SCH (11:16)
[2022-10-31] MEDS: ATENOLOL 50 MG TAB PO SCH (11:16)
[2022-10-31] MEDS: PANTOPRAZOLE 40 MG TAB PO SCH (11:16)
[2022-10-31] MEDS: ENOXAPARIN SOD 40 MG/0.4 ML SYRINGE SC SCH (11:17)
[2022-10-31] MEDS: INSULIN LANTUS (GLARGINE) 1 /0.01ml (100units/ml) SC SCH ×2 (11:19→22:38)
[2022-10-31 13:00] VITALS: BP 146/86
[2022-10-31] MEDS ORDERED: InsuLIN REG 1unit/0.01ml Soln (100units/ml) IV ONE (15:30)
[2022-10-31 17:06] VITALS: BP 155/80
[2022-10-31 22:00] VITALS: BP 108/64
[2022-10-31] MEDS: HYDROcodone-ACET 10/325MG TAB PO PRN (22:21)
[2022-10-31] MEDS: TEMAZEPAM 15 MG CAP PO PRN (22:22)
[2022-10-31] MEDS: ATORVASTATIN 20 MG TAB PO SCH (22:22)
[2022-11-01] MEDS: ACCU-CHEK COMFORT CURVE STRIP VI SCH ×2 (02:02→05:31)
[2022-11-01] MEDS: InsuLIN REG 1unit/0.01ml Soln (100units/ml) SC SCH ×2 (02:06→05:31)
[2022-11-01 05:00] VITALS: BP 153/90
[2022-11-01] MEDS: ALBUTEROL SULF 2.5 MG/0.5ML(0.5%) NEB SOLN NEB SCH (06:48)
[2022-11-01 08:27] VITALS: BP 128/70
[2022-11-01] MEDS ORDERED: methylPREDNISolone SOD SUCC 40 MG/ML VL IV SCH (10:00)
== END 2022-11-01 08:32 | disposition left against medical advice (07) | DRG 139 ==
LOC: EDBD 20:57 → EDUNIT# 20:57 → ER 20:57 → OVERFLOW 10-24 02:32 → WEST WING 10-24 15:25
PROVIDERS: ADMIT Nurse Practitioner; ATTEND Nurse Practitioner Acute Care
PROC: 5A09357 Assistance with Respiratory Ventilation, Less than 24 Consecutive Hours, Continuous Positive Airway Pressure (ICD-10-PCS; principal; 2022-10-26)
DX: J18.9 Pneumonia, unspecified organism (principal); J96.21 Acute and chronic respiratory failure with hypoxia; R78.81 Bacteremia; I50.9 Heart failure, unspecified; I11.0 Hypertensive heart disease with heart failure; J44.1 Chronic obstructive pulmonary disease with (acute) exacerbation; Z68.43 Body mass index [BMI] 50.0-59.9, adult; J44.0 Chronic obstructive pulmonary disease with (acute) lower respiratory infection; J98.11 Atelectasis; G47.33 Obstructive sleep apnea (adult) (pediatric); E11.9 Type 2 diabetes mellitus without complications; E66.01 Morbid (severe) obesity due to excess calories; E11.65 Type 2 diabetes mellitus with hyperglycemia; Z53.29 Procedure and treatment not carried out because of patient's decision for other reasons; Z20.822 Contact with and (suspected) exposure to COVID-19; Z83.3 Family history of diabetes mellitus
CPT/HCPCS: 36415; 71045; 80053; 81001; 82565; 82962; 83735; 83880; 84484; 84520; 85007; 85025; 85027; 85379; 85610; 85730; 87040; 87070; 87077; 87186; 87205; 87426; 87804; 93005; 93306; 94640; 96365; 96372; 96375; 99291; G0378; J0696; J1815; J1956; J2543

== ENCOUNTER 2024-08-05 20:46 | Inpatient (IN) | payer MEDICAID ==
[~2024-08-05] VITALS: Ht 182.9 cm; Wt 172.0 kg
[2024-08-05] MEDS: ONDANSETRON HCL 4 MG/2 ML VIAL IV ONE (02:47)
[2024-08-05] MEDS: MORPHINE SULFATE 4 MG/ML SYR/VIAL IV ONE (03:15)
[~2024-08-05 20:46] MED LIST changes: -AMLO-489 PO; +AMLO1TAB22 PO; +ATOR40TA52 PO; +BECL80AE11 INH; +CLIN1CAP70 PO; -CLIN300C8 PO; +INSU1INJ19 SC; +LOSA-534 PO
[2024-08-05 22:09] LABS: Basophils # (auto) 0.1 10 ^3/uL (0-0.2); Eosinophils # (auto) 0.3 10 ^3/uL (0-0.8); Eosinophils % (auto) 3.5 % (0.0-7.0); Hematocrit 38.2 % (41.0-53.0); Hemoglobin 12.7 g/dL (13.5-17.5); INR 1.03 (0.9-1.15); Lymphocytes # (auto) 1.2 10 ^3/uL (0.4-5.4); Mean Corpuscular Hemoglobin 29.1 pg (28.0-32.0); Mean Corpuscular Hgb Conc. 33.3 g/dL (32.0-36.0); Mean Corpuscular Volume 87.3 fL (80.0-100.0); Monocytes # (auto) 0.9 10 ^3/uL (0-1.3); Monocytes % (auto) 10.6 % (0.0-12.0); Neutrophils # (auto) 6.3 10 ^3/uL (1.6-8.6); Neutrophils % (auto) 70.9 % (37.0-80.0); Nucleated Red Blood Cells % 0.1 %; Partial Thromboplastin Time 28.4 SEC (24.5-34.5); Platelet Count (auto) 305 10^3/uL (140-450); Prothrombin Time 10.9 sec (9.3-11.8); Red Blood Cells 4.38 10^6/uL (4.5-5.90); Red Cell Distribution Width 14.4 % (11.8-14.3); Total Protein 7.4 g/dL (5.7-8.2); White Blood Cell 8.9 10^3/uL (4.4-10.8)
[2024-08-05 22:18] LABS: Alanine Aminotransferase 35 U/L (7-40); Albumin 4.2 g/dL (3.2-4.8); Alkaline Phosphatase 106 U/L (46-116); Anion Gap 5 (5-15); Aspartate Aminotransferase 20 U/L (13-40); Bilirubin, Total 0.4 mg/dL (0.2-1.0); Blood Urea Nitrogen 22 mg/dL (9-23); Calcium 9.8 mg/dL (8.7-10.4); Carbon Dioxide 24 mmol/L (20-30); Chloride 104 mmol/L (98-107); Glucose 197 mg/dL (74-106); Magnesium 1.5 mg/dL (1.6-2.6); Potassium 5.1 mmol/L (3.5-5.1); Sodium 133 mmol/L (136-145)
[2024-08-06 04:07] VITALS: RESP 18; O2SAT 96
[2024-08-06 07:30] VITALS: PULSE 84; RESP 12
[2024-08-06] MEDS: MORPHINE SULFATE 4 MG/ML SYR/VIAL IV ONE (09:27)
[2024-08-06] MEDS: ONDANSETRON HCL 4 MG/2 ML VIAL IV ONE (09:28)
[2024-08-06] MEDS ORDERED: LACTATED RINGER'S 1,000 ML IV ONE (10:45)
[2024-08-06] MEDS ORDERED: HYDROmorphone HCL 2 MG/ML VL/or syr IV PRN (11:00)
[2024-08-06] MEDS ORDERED: ACETAMINOPHEN 325 MG TAB PO PRN (11:00)
[2024-08-06] MEDS ORDERED: ONDANSETRON HCL 4 MG/2 ML VIAL IV PRN (11:00)
[2024-08-06] MEDS ORDERED: MORPHINE SULFATE INJ 2 MG/ml SYRG IV PRN (11:00)
[2024-08-06] MEDS ORDERED: NITROGLYCERIN 0.4 MG SL TAB SL PRN (11:00)
[2024-08-06] MEDS: PIPERACILLIN-TAZOB 3.375GM 100 ML IV SCH (11:49)
[2024-08-06] MEDS: GABAPENTIN 300 MG CAP PO SCH (14:05)
[2024-08-06] MEDS: SODIUM CHLOR 0.9% PF (SALINE LOCK) 10ML VIAL/SYR IV SCH (14:06)
[2024-08-06 14:28] LABS: Erythrocyte Sedimentation Rate 70 mm/hr (0-20)
[2024-08-06 15:09] VITALS: BP 137/74; PULSE 82; RESP 17; TEMP 97.6; O2SAT 95
[2024-08-06 17:19] VITALS: BP 137/74; PULSE 82; RESP 17; TEMP 97.9; O2SAT 95
[2024-08-06] MEDS: QUEtiapine FUMARATE 100 MG TAB PO SCH (18:01)
[2024-08-06 20:00] VITALS: PULSE 90
[2024-08-06 21:00] VITALS: BP 146/71; PULSE 93; RESP 20; TEMP 98.3; O2SAT 91
[2024-08-06] MEDS: ATORVASTATIN 20 MG TAB PO SCH (22:19)
[2024-08-06] MEDS: INSULIN LANTUS (GLARGINE) 1 /0.01ml (100units/ml) SC SCH (22:19)
[2024-08-07] VITALS (8 sets, daily range): BP systolic 106–157; BP diastolic 56–92; PULSE 77–88; RESP 18–20; TEMP 97.9–98.7; O2SAT 90–94
[2024-08-07] MEDS: HYDROcodone-ACET 5/325MG TAB PO PRN (03:49)
[2024-08-07 06:32] LABS: Basophils # (auto) 0.1 10 ^3/uL (0-0.2); Basophils % (auto) 0.8 % (0.0-2.0); Eosinophils # (auto) 0.3 10 ^3/uL (0-0.8); Eosinophils % (auto) 4.6 % (0.0-7.0); Hematocrit 34.3 % (41.0-53.0); Hemoglobin 11.6 g/dL (13.5-17.5); Lymphocytes # (auto) 0.9 10 ^3/uL (0.4-5.4); Mean Corpuscular Hemoglobin 29.4 pg (28.0-32.0); Mean Corpuscular Hgb Conc. 33.9 g/dL (32.0-36.0); Mean Corpuscular Volume 86.9 fL (80.0-100.0); Monocytes # (auto) 0.6 10 ^3/uL (0-1.3); Neutrophils # (auto) 4.5 10 ^3/uL (1.6-8.6); Neutrophils % (auto) 70.6 % (37.0-80.0); Nucleated Red Blood Cells % 0.1 %; Platelet Count (auto) 258 10^3/uL (140-450); Red Blood Cells 3.94 10^6/uL (4.5-5.90); Red Cell Distribution Width 14.1 % (11.8-14.3); White Blood Cell 6.4 10^3/uL (4.4-10.8)
[2024-08-07 07:07] LABS: Alanine Aminotransferase 25 U/L (7-40); Albumin 3.9 g/dL (3.2-4.8); Alkaline Phosphatase 92 U/L (46-116); Anion Gap 5 (5-15); Aspartate Aminotransferase 19 U/L (13-40); BUN/Creatinine Ratio 18.4 (10.0-20.0); Blood Urea Nitrogen 18 mg/dL (9-23); Calcium 9.3 mg/dL (8.7-10.4); Carbon Dioxide 27 mmol/L (20-30); Chloride 101 mmol/L (98-107); Potassium 4.6 mmol/L (3.5-5.1); Sodium 133 mmol/L (136-145)
[2024-08-07 07:08] LABS: Bilirubin, Total 0.5 mg/dL (0.2-1.0); Total Protein 6.7 g/dL (5.7-8.2)
[2024-08-07 07:26] LABS: Glucose 352 mg/dL (74-106)
[2024-08-07] MEDS: FUROSEMIDE 20 MG TAB PO SCH (09:39)
[2024-08-07] MEDS: amLODIPine BESYLATE 5 MG TAB PO SCH (09:40)
[2024-08-07] MEDS: LOSARTAN POTASSIUM 50 MG TAB PO SCH (09:40)
[2024-08-07] MEDS: ATENOLOL 25 MG TAB PO SCH (09:40)
[2024-08-07] MEDS: ENOXAPARIN SOD 40 MG/0.4 ML SYRINGE SC SCH (09:41)
[2024-08-07] MEDS ORDERED: DEXTROSE (50%) 50ML SYRG IV PRN (14:00)
[2024-08-07] MEDS: ACCU-CHEK COMFORT CURVE STRIP VI SCH (17:27)
[2024-08-07] MEDS: InsuLIN REG 1unit/0.01ml Soln (100units/ml) SC SCH ×2 (17:28→21:26)
[2024-08-07] MEDS: InsuLIN REG 1unit/0.01ml Soln (100units/ml) IV ONE (18:50)
[2024-08-08] VITALS (8 sets, daily range): BP systolic 104–148; BP diastolic 68–82; PULSE 56–85; RESP 15–19; TEMP 97.8–98.5; O2SAT 90–95
[2024-08-08 06:34] LABS: Alanine Aminotransferase 28 U/L (7-40); Alkaline Phosphatase 96 U/L (46-116); Anion Gap 5 (5-15); Aspartate Aminotransferase 19 U/L (13-40); BUN/Creatinine Ratio 18.3 (10.0-20.0); Bilirubin, Total 0.4 mg/dL (0.2-1.0); Blood Urea Nitrogen 17 mg/dL (9-23); Calcium 9.8 mg/dL (8.7-10.4); Carbon Dioxide 31 mmol/L (20-30); Chloride 100 mmol/L (98-107); Glucose 221 mg/dL (74-106); Sodium 136 mmol/L (136-145); Total Protein 6.8 g/dL (5.7-8.2)
[2024-08-08 06:36] LABS: Basophils # (auto) 0.1 10 ^3/uL (0-0.2); Basophils % (auto) 0.8 % (0.0-2.0); Eosinophils # (auto) 0.3 10 ^3/uL (0-0.8); Eosinophils % (auto) 4.9 % (0.0-7.0); Hematocrit 35.2 % (41.0-53.0); Lymphocytes # (auto) 1.2 10 ^3/uL (0.4-5.4); Lymphocytes % (auto) 16.8 % (10.0-50.0); Mean Corpuscular Hemoglobin 29.1 pg (28.0-32.0); Mean Corpuscular Hgb Conc. 34.1 g/dL (32.0-36.0); Mean Corpuscular Volume 85.1 fL (80.0-100.0); Monocytes # (auto) 0.6 10 ^3/uL (0-1.3); Monocytes % (auto) 8.4 % (0.0-12.0); Neutrophils # (auto) 4.8 10 ^3/uL (1.6-8.6); Neutrophils % (auto) 69.1 % (37.0-80.0); Nucleated Red Blood Cells % 0.1 %; Platelet Count (auto) 295 10^3/uL (140-450); Red Blood Cells 4.13 10^6/uL (4.5-5.90); White Blood Cell 6.9 10^3/uL (4.4-10.8)
[2024-08-08] MEDS ORDERED: DEXTROSE (50%) 50ML SYRG IV PRN (09:45)
[2024-08-08] MEDS: ACCU-CHEK COMFORT CURVE STRIP VI SCH (11:53)
[2024-08-08] MEDS: InsuLIN REG 1unit/0.01ml Soln (100units/ml) SC SCH ×2 (11:57→21:10)
[2024-08-08] MEDS: PIPERACILLIN-TAZOB 3.375GM 100 ML IV SCH (17:01)
[2024-08-08] MEDS: ENOXAPARIN SOD 40 MG/0.4 ML SYRINGE SC SCH (21:09)
[2024-08-09] VITALS (13 sets, daily range): BP systolic 128–164; BP diastolic 66–91; PULSE 72–90; RESP 15–20; TEMP 97.9–98.2; O2SAT 91–98
[2024-08-09] MEDS: DOCUSATE SOD 100 MG CAP PO PRN (05:19)
[2024-08-09 07:17] LABS: Alanine Aminotransferase 28 U/L (7-40); Alkaline Phosphatase 94 U/L (46-116); Anion Gap 7 (5-15); Aspartate Aminotransferase 22 U/L (13-40); BUN/Creatinine Ratio 14.9 (10.0-20.0); Blood Urea Nitrogen 15 mg/dL (9-23); Calcium 9.3 mg/dL (8.7-10.4); Carbon Dioxide 30 mmol/L (20-30); Chloride 98 mmol/L (98-107); Glucose 244 mg/dL (74-106); Potassium 3.9 mmol/L (3.5-5.1); Sodium 135 mmol/L (136-145)
[2024-08-09 07:18] LABS: Bilirubin, Total 0.3 mg/dL (0.2-1.0); Total Protein 6.7 g/dL (5.7-8.2)
[2024-08-09 07:21] LABS: Basophils # (auto) 0 10 ^3/uL (0-0.2); Basophils % (auto) 0.7 % (0.0-2.0); Eosinophils # (auto) 0.3 10 ^3/uL (0-0.8); Eosinophils % (auto) 4.3 % (0.0-7.0); Lymphocytes % (auto) 15.5 % (10.0-50.0); Mean Corpuscular Hemoglobin 29.3 pg (28.0-32.0); Mean Corpuscular Hgb Conc. 34.3 g/dL (32.0-36.0); Mean Corpuscular Volume 85.4 fL (80.0-100.0); Monocytes # (auto) 0.6 10 ^3/uL (0-1.3); Monocytes % (auto) 8.5 % (0.0-12.0); Neutrophils # (auto) 4.7 10 ^3/uL (1.6-8.6); Nucleated Red Blood Cells % 0.1 %; Platelet Count (auto) 309 10^3/uL (140-450); Red Blood Cells 4.09 10^6/uL (4.5-5.90); Red Cell Distribution Width 13.9 % (11.8-14.3); White Blood Cell 6.6 10^3/uL (4.4-10.8)
[2024-08-09] MEDS: FUROSEMIDE 40 MG TAB PO SCH (08:38)
[2024-08-09] MEDS ORDERED: IPRATROPIUM BROM 0.5 MG/2.5ML INH SOL NEB SCH ×2 (12:00→14:00)
[2024-08-09] MEDS ORDERED: ALBUTEROL SULF 2.5 MG/0.5ML(0.5%) NEB SOLN NEB SCH ×2 (12:00→14:00)
[2024-08-09] MEDS: ALBUTEROL SULF 2.5 MG/0.5ML(0.5%) NEB SOLN NEB PRN (14:04)
[2024-08-09] MEDS: IPRATROPIUM BROM 0.5 MG/2.5ML INH SOL NEB PRN (14:05)
[2024-08-10] VITALS (11 sets, daily range): BP systolic 119–152; BP diastolic 77–88; PULSE 69–89; RESP 14–20; TEMP 97.3–99.1; O2SAT 91–98
[2024-08-10 06:47] LABS: Basophils # (auto) 0.1 10 ^3/uL (0-0.2); Basophils % (auto) 0.8 % (0.0-2.0); Eosinophils # (auto) 0.3 10 ^3/uL (0-0.8); Eosinophils % (auto) 3.9 % (0.0-7.0); Hematocrit 36.6 % (41.0-53.0); Hemoglobin 12.4 g/dL (13.5-17.5); Lymphocytes # (auto) 0.9 10 ^3/uL (0.4-5.4); Lymphocytes % (auto) 13.7 % (10.0-50.0); Mean Corpuscular Hemoglobin 28.6 pg (28.0-32.0); Mean Corpuscular Hgb Conc. 33.9 g/dL (32.0-36.0); Mean Corpuscular Volume 84.4 fL (80.0-100.0); Monocytes # (auto) 0.6 10 ^3/uL (0-1.3); Monocytes % (auto) 9.5 % (0.0-12.0); Neutrophils # (auto) 4.9 10 ^3/uL (1.6-8.6); Neutrophils % (auto) 72.1 % (37.0-80.0); Nucleated Red Blood Cells % 0.1 %; Platelet Count (auto) 308 10^3/uL (140-450); Red Blood Cells 4.33 10^6/uL (4.5-5.90); White Blood Cell 6.8 10^3/uL (4.4-10.8)
[2024-08-10 07:05] LABS: Alanine Aminotransferase 25 U/L (7-40); Alkaline Phosphatase 91 U/L (46-116); Anion Gap 7 (5-15); Aspartate Aminotransferase 21 U/L (13-40); BUN/Creatinine Ratio 12.9 (10.0-20.0); Bilirubin, Total 0.4 mg/dL (0.2-1.0); Blood Urea Nitrogen 12 mg/dL (9-23); Calcium 9.5 mg/dL (8.7-10.4); Carbon Dioxide 31 mmol/L (20-30); Chloride 99 mmol/L (98-107); Glucose 210 mg/dL (74-106); Potassium 3.9 mmol/L (3.5-5.1); Sodium 137 mmol/L (136-145); Total Protein 6.7 g/dL (5.7-8.2)
[2024-08-10 13:09] LABS: INR 1.09 (0.9-1.15); Partial Thromboplastin Time 30.4 SEC (24.5-34.5); Prothrombin Time 11.5 sec (9.3-11.8)
[2024-08-10] MEDS: LACTULOSE 20Gm/30ML SOLN PO ONE (15:15)
[2024-08-10] MEDS: LIDOCAINE 1% (LOCAL ANESTH.) PF 5ml SDV ID ONE (18:01)
[2024-08-10] MEDS: SODIUM CHLOR 0.9% PF (SALINE LOCK) 10ML VIAL/SYR IV SCH (21:47)
[2024-08-11] VITALS (10 sets, daily range): BP systolic 118–148; BP diastolic 63–98; PULSE 69–85; RESP 14–22; TEMP 97.6–99; O2SAT 90–95
[2024-08-11 06:26] LABS: Basophils # (auto) 0.1 10 ^3/uL (0-0.2); Basophils % (auto) 0.8 % (0.0-2.0); Eosinophils # (auto) 0.3 10 ^3/uL (0-0.8); Eosinophils % (auto) 4.2 % (0.0-7.0); Hematocrit 35.3 % (41.0-53.0); Hemoglobin 12.1 g/dL (13.5-17.5); Lymphocytes # (auto) 0.9 10 ^3/uL (0.4-5.4); Lymphocytes % (auto) 13.8 % (10.0-50.0); Mean Corpuscular Hemoglobin 29.2 pg (28.0-32.0); Mean Corpuscular Hgb Conc. 34.3 g/dL (32.0-36.0); Mean Corpuscular Volume 85.1 fL (80.0-100.0); Monocytes # (auto) 0.6 10 ^3/uL (0-1.3); Monocytes % (auto) 8.8 % (0.0-12.0); Neutrophils # (auto) 4.8 10 ^3/uL (1.6-8.6); Neutrophils % (auto) 72.4 % (37.0-80.0); Nucleated Red Blood Cells % 0.1 %; Platelet Count (auto) 296 10^3/uL (140-450); Red Blood Cells 4.14 10^6/uL (4.5-5.90); Red Cell Distribution Width 14.2 % (11.8-14.3); White Blood Cell 6.7 10^3/uL (4.4-10.8)
[2024-08-11 06:41] LABS: Alanine Aminotransferase 30 U/L (7-40); Albumin 3.6 g/dL (3.2-4.8); Alkaline Phosphatase 94 U/L (46-116); Anion Gap 7 (5-15); Aspartate Aminotransferase 29 U/L (13-40); BUN/Creatinine Ratio 16.2 (10.0-20.0); Bilirubin, Total 0.4 mg/dL (0.2-1.0); Blood Urea Nitrogen 18 mg/dL (9-23); Calcium 8.8 mg/dL (8.7-10.4); Carbon Dioxide 29 mmol/L (20-30); Chloride 100 mmol/L (98-107); Potassium 4.3 mmol/L (3.5-5.1); Sodium 136 mmol/L (136-145)
[2024-08-11 06:42] LABS: Glucose 315 mg/dL (74-106)
[2024-08-12] VITALS (14 sets, daily range): BP systolic 123–148; BP diastolic 67–92; PULSE 74–93; RESP 14–22; TEMP 97.5–99.1; O2SAT 90–99
[2024-08-12] MEDS ORDERED: LACTULOSE 20Gm/30ML SOLN PO PRN (15:15)
[2024-08-12] MEDS: MORPHINE SULFATE 4 MG/ML SYR/VIAL IV PRN (17:37)
[2024-08-13] VITALS (10 sets, daily range): BP systolic 127–150; BP diastolic 59–82; PULSE 72–82; RESP 18–19; TEMP 97.3–98.7; O2SAT 90–93
[2024-08-14] VITALS (11 sets, daily range): BP systolic 126–177; BP diastolic 74–88; PULSE 71–88; RESP 12–21; TEMP 97.9–98.9; O2SAT 90–100
[2024-08-14] MEDS: PIPERACILLIN-TAZOB 3.375GM 100 ML IV SCH (10:15)
[2024-08-15] VITALS (10 sets, daily range): BP systolic 135–152; BP diastolic 76–86; PULSE 71–90; RESP 16–22; TEMP 97.6–98.5; O2SAT 91–95
== END 2024-08-15 18:10 | DRG 194 ==
LOC: ER 20:46 → EDBD 20:46 → TELE 08-06 10:55 → TELE-E-ADS 08-06 14:40
PROVIDERS: ADMIT Internal Medicine; ATTEND Family Medicine
PROC: 02HV33Z Insertion of Infusion Device into Superior Vena Cava, Percutaneous Approach (ICD-10-PCS; principal; 2024-08-10)
PROC: B548ZZA Ultrasonography of Superior Vena Cava, Guidance (ICD-10-PCS; 2024-08-10)
DX: I11.0 Hypertensive heart disease with heart failure (principal); J44.1 Chronic obstructive pulmonary disease with (acute) exacerbation; L03.115 Cellulitis of right lower limb; L03.116 Cellulitis of left lower limb; Z68.43 Body mass index [BMI] 50.0-59.9, adult; F32.A Depression, unspecified; Z83.3 Family history of diabetes mellitus; E11.65 Type 2 diabetes mellitus with hyperglycemia; I50.33 Acute on chronic diastolic (congestive) heart failure
CPT/HCPCS: 36415; 36569; 71045; 73590; 80053; 82962; 83735; 83880; 84484; 84550; 85025; 85610; 85652; 85730; 86141; 87040; 93005; 93306; 93925; 93970; 94640; 96374; 96375; 96376; 97110; 97116; 97163; 97530; G0378; J1815; J2405; J2543